=== PATIENT | male | born 1965 ===

== ENCOUNTER 2022-05-14 07:06 | Day surgery (SDC) | payer OTHER ==
[~2022-05-14] VITALS: Ht 172.7 cm; Wt 88.5 kg
[~2022-05-14 07:06] MED LIST: AVALIDE; TOPROL XL50 M1 PO
== END 2022-05-14 14:45 | disposition home or self-care (01) ==
LOC: CIR.AMB 07:06 → SURG 09:45 → EDSTATUS 09:45 → CIR.AMB 14:45
PROVIDERS: ATTEND Colon & Rectal Surgery
DX: K60.1 Chronic anal fissure (principal); Z20.822 Contact with and (suspected) exposure to COVID-19; Z88.6 Allergy status to analgesic agent; I10 Essential (primary) hypertension; Z85.53 Personal history of malignant neoplasm of renal pelvis